=== PATIENT | male | born 1945 | race Caucasian/White ===

== ENCOUNTER 2018-11-30 11:05 | Emergency (ER) | payer MEDICARE, BC ==
[~2018-11-30] VITALS: Ht 180.3 cm; Wt 90.7 kg
[~2018-11-30 11:05] MED LIST: CIPR500 PO; DOCSEN PO; FENO160 PO; FINA5 PO; LEVSOD88 PO; LISI20 PO; LORPSEER12 PO; NITROFURANTOIN PO; Norco 5-325 Ta1 EACH PO; Pyridium100 MG PO; TAMS.4ER PO
[2018-11-30] MEDS ORDERED: Norco 7.5-3251 EACH PO (11:23)
[2018-11-30] MEDS ORDERED: CYCL10 PO (11:23)
== END 2018-11-30 12:21 | disposition home or self-care (01) ==
LOC: ER 11:05
DX: M62.830 Muscle spasm of back (principal); Z88.5 Allergy status to narcotic agent; Z79.899 Other long term (current) drug therapy; Z87.891 Personal history of nicotine dependence
CPT/HCPCS: 96372; 99283-25; A9270-GY; J1885

== ENCOUNTER 2020-12-26 09:40 | Day surgery (SDC) | payer MEDICARE, BC ==
[~2020-12-26] VITALS: Ht 180.3 cm; Wt 95.2 kg
[~2020-12-26 09:40] MED LIST changes: +AMLO10; +CLARITIN-D 121 EAC1; +CYCL10 PO; +Fenofibrate200 MG; +Norco 7.5-3251 EACH PO
== END 2020-12-26 11:53 | disposition home or self-care (01) ==
LOC: ORSCSDS 09:40
PROVIDERS: Internal Medicine Gastroenterology
PROC: 0DBM8ZX Excision of Descending Colon, Via Natural or Artificial Opening Endoscopic, Diagnostic (ICD-10-PCS; principal; 2020-12-26 11:00)
PROC: 0DBK8ZX Excision of Ascending Colon, Via Natural or Artificial Opening Endoscopic, Diagnostic (ICD-10-PCS; principal; 2020-12-26 11:00)
PROC: 0DBN8ZX Excision of Sigmoid Colon, Via Natural or Artificial Opening Endoscopic, Diagnostic (ICD-10-PCS; principal; 2020-12-26 11:00)
DX: Z12.11 Encounter for screening for malignant neoplasm of colon (principal); Z86.010 Personal history of colon polyps; D12.2 Benign neoplasm of ascending colon; K63.5 Polyp of colon; D12.4 Benign neoplasm of descending colon; E11.9 Type 2 diabetes mellitus without complications; I10 Essential (primary) hypertension; E66.9 Obesity, unspecified; Z68.31 Body mass index [BMI] 31.0-31.9, adult; K57.30 Diverticulosis of large intestine without perforation or abscess without bleeding; Z79.899 Other long term (current) drug therapy
CPT/HCPCS: 82947; 88305; J2704; J7120